=== PATIENT | male | born 1985 ===

== ENCOUNTER 2019-09-07 08:48 | Emergency (ER) | payer BC ==
[2019-09-07] MEDS ORDERED: Ketorolac 60 MG/2 ML SDV IM ONE (09:04)
--- NOTE | 2019-09-07 09:09 | EDM.PDOC ---
ED HPI GENERAL MEDICAL PROBLEM - General Chief Complaint: Lower Extremity Injury/Pain Stated Complaint: LEFT KNEE PAIN Time Seen by Provider: 09/07/19 08:59 - History of Present Illness INITIAL COMMENTS - FREE TEXT/NARRATIVE: HISTORY AND PHYSICAL: History of present illness: The patient is a 34-year-old male who presents with 2 days of constant left knee pain he says is worse at night when he is trying to go to sleep. He says that he does a lot of movements with that for work and he did not directly injure the area. He does have a history of an ACL injury in the past which he believes it is not a complete injury and he did not have to have surgery but he thinks he was supposed to do physical therapy which he never followed up on. He feels that the knee is swollen but it is not red or hot and he has no distal motor weakness neurosensory changes in the lower leg ankle and foot and no proximal hip pain. He has no systemic complaints of fever chills nausea vomiting chest pain or shortness of breath. The only medication he has taken is some aspirin last night. Review of systems: As per history of present illness and below otherwise all systems reviewed and negative. Past medical history: As per history of present illness and as reviewed below otherwise noncontributory. Surgical history: As per history of present illness and as reviewed below otherwise noncontributory. Social history: No reported history of drug or alcohol abuse. Family history: As per history of present illness and as reviewed below otherwise noncontributory. Physical exam: General: Well-developed well-nourished man who is nontoxic and vital signs are noted by me. HEENT: Atraumatic, normocephalic, negative for conjunctival pallor or scleral icterus, mucous membranes moist, throat clear, neck supple, nontender, trachea midline. Lungs: Clear to auscultation, breath sounds equal bilaterally, chest nontender. Heart: S1S2, regular rate and rhythm no overt murmurs Abdomen: Soft, nondistended, nontender. NABS Pelvis: Stable nontender. Genitourinary: Deferred. Rectal: Deferred. Extremities: Atraumatic, range of motion of all extremities and there is some mild tenderness to palpation of the medial aspect of the knee area without soft tissue swelling erythema warmth or joint effusion. There are no palpable bony deformities but the patient persistently points and shows me that he has discomfort at the medial aspect of the knee just medial to the patella area there is no distal tib-fib ankle foot tenderness defects or deformities or any proximal femur tenderness defects or deformities. On stress I did not elicit any laxity of the ACL medial or lateral collateral ligaments. negative for cords or calf pain. Neurovascular unremarkable. Neuro: Awake, alert, oriented. Cranial nerves II through XII unremarkable. Cerebellum unremarkable. Motor and sensory unremarkable throughout. Exam nonfocal. Diagnostics: X-ray left knee Therapeutics: Toradol IM, neoprene splint Impression: Right knee pain Definitive disposition and diagnosis as appropriate pending reevaluation and review of above. Left Knee Pain Score (Numeric/FACES): 7 - Related Data Allergies Allergy/AdvReac Type Severity Reaction Status Date / Time No Known Allergies Allergy Verified 09/07/19 08:56 Home Meds: Home Meds . [No Known Home Meds] 09/07/19 [History] Past Medical History Respiratory History: Reports: Pneumothorax Other Musculoskeletal History: Broken collar bone. - Infectious Disease History Infectious Disease History: Reports: Chicken Pox Social & Family History - Family History Family Medical History: Noncontributory - Tobacco Use Smoking Status *Q: Never Smoker - Caffeine Use Caffeine Use: Reports: Energy Drinks - Recreational Drug Use Recreational Drug Use: No Review of Systems - Review of Systems Review Of Systems: ROS reveals no pertinent complaints other than HPI. ED EXAM, GENERAL - Physical Exam Exam: See Below (See dictation) Course - Vital Signs Last Recorded V/S: Last Vital Signs Temp 36.8 C 09/07/19 08:56 Pulse 94 09/07/19 08:56 Resp 17 09/07/19 08:56 BP 135/73 09/07/19 08:56 Pulse Ox 98 09/07/19 08:56 - Orders/Labs/Meds Orders: Active Orders 24 hr Category Date Time Status DME for Discharge [COMM] Stat Oth 09/07/19 09:11 Ordered Meds: Medications Discontinued Medications Generic Name Dose Route Start Last Admin Trade Name Freq PRN Reason Stop Dose Admin Ketorolac Tromethamine 60 mg 09/07/19 09:04 09/07/19 09:11 Toradol IM 09/07/19 09:05 60 mg ONETIME ONE Administration Departure - Departure Time of Disposition: 09:39 Disposition: Home, Self-Care 01 Condition: Good Clinical Impression: Left knee pain Qualifiers: Chronicity: unspecified Qualified Code(s): M25.562 - Pain in left knee - Discharge Information Instructions: Knee Pain, Adult Referrals: PCP,None [Primary Care Provider] - Forms: ED Department Discharge Additional Instructions: The following information is given to patients seen in the emergency department who are being discharged to home. This information is to outline your options for follow-up care. We provide all patients seen in our emergency department with a follow-up referral. The need for follow-up, as well as the timing and circumstances, are variable depending upon the specifics of your emergency department visit. If you don't have a primary care physician on staff, we will provide you with a referral. We always advise you to contact your personal physician following an emergency department visit to inform them of the circumstance of the visit and for follow-up with them and/or the need for any referrals to a consulting specialist. The emergency department will also refer you to a specialist when appropriate. This referral assures that you have the opportunity for followup care with a specialist. All of these measure are taken in an effort to provide you with optimal care, which includes your followup. Under all circumstances we always encourage you to contact your private physician who remains a resource for coordinating your care. When calling for followup care, please make the office aware that this follow-up is from your recent emergency room visit. If for any reason you are refused follow-up, please contact the [facility] emergency department at and ask to speak to the emergency department charge nurse. [facility] - Orth[facility] Professional Building [address] [place] [address], [address] [place] [address] [address] Jamison, Orthopedist [facility] [address] [place] [address] Dr Gonzalez - Dr Eastman - Dr Gauthier [facility] [address] [place] [address] [facility] [address] [place] [address] Ice to area after all activities and elevate. Use the neoprene splint to have been given for support when your work or need to do activities. Please call and schedule follow-up appointment with an bioinformatics support specialist using resources given to above for further care and evaluation of this pain. Return to ER as needed and as discussed and use prescriptions as ordered and needed for pain and inflammation. - My Orders Last 24 Hours: My Active Orders 09/07/19 09:11 DME for Discharge [COMM] Stat - Assessment/Plan Last 24 Hours: My Active Orders 09/07/19 09:11 DME for Discharge [COMM] Stat
--- NOTE | 2019-09-07 09:28 | CR ---
INDICATION: Pain. TECHNIQUE: Three views left knee. FINDINGS: slight narrowing of the lateral compartment of left knee consistent with minimal degenerative change. No acute fracture or dislocation left knee. Left knee otherwise unremarkable. Dictated by Santiago Gallegos MD @ Sep 07 2019 9:26AM Signed by Dr. Santiago Gallegos @ Sep 07 2019 9:27AM
== END 2019-09-07 09:46 | disposition home or self-care (01) ==
LOC: MW.ED 08:48
DX: M25.562 Pain in left knee (principal)
CPT/HCPCS: 73562; 96372; 99283; J1885